=== PATIENT | female | born 1955 | race Caucasian/White ===

== ENCOUNTER 2019-01-01 09:32 | Outpatient (CLI) | payer OTHER ==
[2019-01-01 17:18] LABS: BASOPHILS % (AUTO) 0.2 %; EOSINOPHILS # (AUTO) 0.1 10^3/uL (0.0-0.7); EOSINOPHILS % (AUTO) 1.4 %; HGB - HEMOGLOBIN 14.2 g/dL (12.0-16.0); LYMPHOCYTES # (AUTO) 1.6 10^3/uL (1.5-3.5); LYMPHOCYTES % (AUTO) 35.8 %; MEAN CORPUSCULAR HEMOGLOBIN 32.7 pg (27.0-31.0); MEAN CORPUSCULAR HGB CONC 32.1 g/dL (32.0-36.0); MEAN CORPUSCULAR VOLUME 102.1 fL (81.0-99.0); MEAN PLATELET VOLUME 8.8 fL (7.9-10.8); MONOCYTES # (AUTO) 0.3 10^3/uL (0.0-1.0); MONOCYTES % (AUTO) 6.3 %; NEUTROPHILS # (AUTO) 2.5 10^3/uL (1.5-6.6); NEUTROPHILS % (AUTO) 55.8 %; PLT - PLATELET COUNT 139 10^3/uL (130-450); RED BLOOD COUNT 4.34 10^6/uL (4.20-5.40); RED CELL DISTRIBUTION WIDTH 14.5 % (12.0-15.0); WHITE BLOOD COUNT 4.4 x10^3/uL (4.8-10.8)
[2019-01-01 17:36] LABS: HB2 TOTAL 15.7 g/dL; HEMOGLOBIN A1C 0.53 g/dL; HEMOGLOBIN A1C % 5.2 % (4.6-6.2)
[2019-01-01 17:38] LABS: ALBUMIN 3.8 g/dL (3.2-5.5); ALBUMIN/GLOBULIN RATIO 1.2 (1.0-2.2); ALKALINE PHOSPHATASE 59 IU/L (42-121); ALT ALANINE AMINOTRANSFERASE 23 IU/L (10-60); AST ASPARTATE AMINOTRANSFERASE 24 IU/L (10-42); BILIRUBIN,TOTAL 0.9 mg/dL (0.2-1.0); BUN - BLOOD UREA NITROGEN 12 mg/dL (6-20); CALCIUM 8.7 mg/dL (8.5-10.3); CARBON DIOXIDE - CO2 25 mmol/L (21-32); CHLORIDE 107 mmol/L (101-111); CHOL/HDL RATIO 5.3 (<4.4); CHOLESTEROL 255 mg/dL; CREATININE 0.7 mg/dL (0.4-1.0); GFR - MDRD 84 (>89); GLUCOSE 99 mg/dL (70-100); HDL CHOLESTEROL 48 mg/dL; LDL CHOLESTEROL,CALCULATED 183 mg/dL; LDL/HDL RATIO 3.8 (<4.4); SODIUM 140 mmol/L (135-145); TOTAL PROTEIN 6.9 g/dL (6.7-8.2); VLDL CHOLESTEROL 24 mg/dL
== END 2019-01-01 09:33 | disposition home or self-care (01) ==
LOC: LAB.S 09:32
PROVIDERS: ATTEND Registered Nurse
DX: Z13.220 Encounter for screening for lipoid disorders (principal); Z13.29 Encounter for screening for other suspected endocrine disorder; I10 Essential (primary) hypertension
CPT/HCPCS: 36415; 80053; 80061; 83036; 83721; 84443; 85025

== ENCOUNTER 2019-03-22 17:06 | Outpatient (CLI) | payer OTHER ==
--- NOTE | 2019-03-22 21:59 | Ultrasound Report ---
Reason: POSTMENOPAUSAL BLEEDING Procedure Date: 03/22/2019 Accession Number: [id number] / [id number] Procedure: US - Pelvic w/Transvaginal CPT Code: FULL RESULT: EXAM: PELVIC ULTRASOUND EXAM DATE: 03/22/2019 06:10 PM. CLINICAL HISTORY: Postmenopausal bleeding. COMPARISON: None. TECHNIQUE: Realtime transabdominal pelvic scan performed to identify the uterus and adnexa and as an overview of other pelvic structures, followed by transvaginal scan to provide greater detail of the uterus and adnexa, with static image documentation. FINDINGS: Uterus: 11.4 x 4.7 x 5.4 cm, volume 149.8 cc. Anteverted position. Normal overall size and echotexture. Masses: Possible small intrarenal fibroid grossly measuring 12 x 12 x 10 mm at the right fundal region. Endometrium: 10 mm. Mildly thickened with ill-defined borders. No vascular mass seen. Cervix: Unremarkable. Right Ovary: 1.5 x 1.7 x 2.0 cm, volume 2.7 cc. Normal echotexture and blood flow. Left Ovary: 1.8 x 0.5 x 1.7 cm, volume 0.8 cc. Normal echotexture and blood flow. Free Fluid: None. Other: None. IMPRESSION: Mildly thickened and heterogeneous 10 mm endometrium for a postmenopausal patient. No discrete vascular masses seen. This may reflect hyperplasia but gynecologic follow-up suggested to entirely exclude early endometrial carcinoma. RADIA
== END 2019-03-22 17:07 | disposition home or self-care (01) ==
LOC: DI 17:06
PROVIDERS: ATTEND Obstetrics & Gynecology
DX: R93.89 Abnormal findings on diagnostic imaging of other specified body structures (principal); N95.0 Postmenopausal bleeding
CPT/HCPCS: 76830; 76856

== ENCOUNTER 2019-03-23 11:20 | Outpatient (CLI) | payer OTHER ==
[2019-03-23 12:06] LABS: BASOPHILS % (AUTO) 0.2 %; EOSINOPHILS # (AUTO) 0.1 10^3/uL (0.0-0.7); EOSINOPHILS % (AUTO) 1.1 %; HGB - HEMOGLOBIN 14.4 g/dL (12.0-16.0); LYMPHOCYTES # (AUTO) 1.8 10^3/uL (1.5-3.5); LYMPHOCYTES % (AUTO) 38.9 %; MEAN CORPUSCULAR HGB CONC 32.1 g/dL (32.0-36.0); MEAN CORPUSCULAR VOLUME 99.6 fL (81.0-99.0); MEAN PLATELET VOLUME 8.7 fL (7.9-10.8); MONOCYTES # (AUTO) 0.3 10^3/uL (0.0-1.0); MONOCYTES % (AUTO) 6.4 %; NEUTROPHILS # (AUTO) 2.4 10^3/uL (1.5-6.6); PLT - PLATELET COUNT 123 10^3/uL (130-450); RED CELL DISTRIBUTION WIDTH 13.8 % (12.0-15.0); WHITE BLOOD COUNT 4.5 x10^3/uL (4.8-10.8)
[2019-03-23 12:21] LABS: ALBUMIN/GLOBULIN RATIO 1.2 (1.0-2.2); BILIRUBIN,TOTAL 0.8 mg/dL (0.2-1.0); CALCIUM 9.5 mg/dL (8.5-10.3); CREATININE 0.7 mg/dL (0.4-1.0); TOTAL PROTEIN 7.4 g/dL (6.7-8.2)
== END 2019-03-23 11:21 | disposition home or self-care (01) ==
LOC: LAB 11:20
PROVIDERS: ATTEND Obstetrics & Gynecology
DX: Z01.818 Encounter for other preprocedural examination (principal); N95.0 Postmenopausal bleeding
CPT/HCPCS: 36415; 80053; 85025

== ENCOUNTER 2019-03-26 10:52 | Outpatient (CLI) | payer MEDICARE | END 2019-03-26 10:53 | disposition home or self-care (01) | LOC: RT 10:52 | PROVIDERS: ATTEND Obstetrics & Gynecology | DX: Z01.810 Encounter for preprocedural cardiovascular examination (principal); N95.0 Postmenopausal bleeding | CPT/HCPCS: 93005 ==

== ENCOUNTER 2019-03-31 05:56 | Day surgery (SDC) | payer MEDICARE, OTHER ==
--- NOTE | 2019-03-29 18:47 | HISTORY & PHYSICAL EXAMINATION ---
HPI - Admitted From Admitted from: Other - History of Present Illness HPI Comment/Other: Patient is a 64-year-old with 1-1/2 to 2-year history of postmenopausal bleeding. Patient reported that it started out as light bleeding, with "a slight bother on her panties". Volume has increased in time. Last week she felt a stabbing pain in her left side when she was rising from her couch. She then abruptly had a large quantity of breathe bleeding. She has heavier bleeding about every 3 months. The last episode she feels repeated pantiliner completely twice a day for 2 days. She is concerned about the pain. She had a pelvic ultrasound 10 years ago that was unremarkable. She has not had a recent pelvic imaging. She is not sexually active and has not been for 7 years. No history of abnormal Pap smears. Last Pap was in 2018. No history of sexually transmitted infections. G4, P3 with x3 and TAB x1. Has been in menopause for about 10 to 15 years. Started perimenopausal transition at 46 with completion at age 54. Allergies: No Known Allergies Medications: MISOPROSTOL 200 MCG ORAL TABLET (MISOPROSTOL) Place 2 tablets in the vagina the night prior to the procedure.; Route: VAGINAL Problems: Postmenopausal bleeding (ICD-627.1) (JLP23-T53.0) Obesity (ICD-278.00) (XVR68-V24.9) Hearing loss, right ear (ICD-389.9) (RJT27-O22.91) Postmenopausal (ICD-V49.81) (CRJ84-K34.0) Skin lesions, multiple (ICD-709.9) (IHE46-S08.8) Postmenopausal bleeding (ICD-627.1) (CAN95-X95.0) Screening for alcoholism (ICD-V79.1) (XJL46-J57.89) Screening for depression (ICD-V79.0) (DSA10-E77.89) Screening for hyperlipidemia (ICD-V77.91) (YNQ51-Z91.220) Screening for thyroid disorder (ICD-V77.0) (OFZ81-P35.29) Hypertension benign essential (ICD-401.1) (DQD20-H91) Family History Summary: Legacy Family History Notes: Grandfather with bone marrow cancer Family History Reviewed: 03/12/2019 Family History of Lung/Respiratory Disease for Mother - Entered On: 12/31/2018 Family History of Other Cancer for Mother - Entered On: 12/31/2018 Family History of Lung/Respiratory Disease for Father - Entered On: 12/31/2018 Family History of Other Cancer for Father - Entered On: 12/31/2018 Social History Summary: Patient has never smoked. Patient currently is smokeless tabacco user. Passive Smoke: Y Alcohol Use: Y Drug Use: N HIV/High Risk: N Regular Exercise: Y Lives in [place] with a roommate Retired; ports 1 once a week it would be [employer] T: None E: One glass of wine per week D: None Safe at home Social History Reviewed: 03/12/2019 Previous Social History: Patient has never smoked. Passive Smoke: N Alcohol Use: Y Drug Use: N Risk Factors: Smoked Tobacco Use: Never smoker Smokeless Tobacco Use: Current Passive Smoke Exposure: yes HIV High Risk Behavior: no Caffeine Use: 1 drinks per day Exercise: yes Times/wk: 7 Type of Exercise: Walk Seatbelt Use: 100 % Sun Exposure: frequently Vital Signs: Patient Profile: 64 Years Old Female LMP: 2007 Height: 61.5 inches Weight: 214 pounds BMI: 39.92 BP sittin / 90 Cuff size: large Vitals Entered By: Radha Wheeler MA (March 12, 2019 9:23 AM) Meds Reviewed: Done Allergies Reviewed: Done No known meds: F No known allergies: T Menstrual History: LMP (date): 2007 Past Medical History: Reviewed and updated today: Past Medical History was requested of patient but none was remarked. Fibroids Weight Disorder Past Surgical History: Reviewed and updated today: Tubal Ligation OB Initial Intake Information Race: White Marital status: Single Menstrual Hx/EDC LMP (date): 2007 Past History : 4 Term Births: 3 Elect. Ab: 1 # 1 Delivery date: 07/15/1975 Delivery type: # 2 Delivery date: 03/24/1977 Delivery type: # 3 Delivery date: 08/16/1986 Delivery type: ALUMINUM POLISHER Review of Systems ROS Comments: As per HPI otherwise remaining systems are negative. Flowsheet View for Follow-up Visit Weight: 214 Blood pressure: 144 / 90 Physical Constitutional: alert, no acute distress, well hydrated, well developed. obese appearing. Skin: normal turgor, normal color, no rashes. Head: atraumatic, normocephalic. Eyes: No conjunctival injection or scleral icterus Cardiovascular: RRR. Respiratory: no respiratory distress, clear to auscultation. Abdomen: nondistended, nontender, no guarding, normal BS. Spine: no deformities. Extremities: no deformities. Neurologic: normal. Psych: affect and mood appropriate, normal interaction, good eye contact. Vulva: normal appearance, no lesions or masses. Urethra: normal. Bladder: normal. Vagina: normal, rugated, physiologic discharge. Cervix: normal, no motion tenderness, no lesions. Unable to penetrate cervical os Impression & Recommendations: Problem # 1: Postmenopausal bleeding (ICD-627.1) (YYT34-S85.0) Orders: ENDOMETRIAL BIOPSY (CPT-48207) 56120 OV New Detailed (CPT-06045) US PELVIC/TRANSVAGINAL (CPT-85394, 15950) Unable to complete EMB due to cervical stenosis Will proceed to OR for hysteroscopy US prior to procedure Riskl/benefits/alternatives reviewed Written informed consent obtained Misoprostol 200 mcg x2 ordered for procedure treatment This visit lasted at least 30 minutes with greater than 50% of the time devoted to face to face case management discussion between the provider and the patient. PMH/PSH - Past Medical History Cardiovascular: positive: Hypertension Respiratory: positive: None Endocrine/Autoimmune: positive: None GI: positive: None : positive: None HEENT: positive: Chronic vision loss Psych: positive: None Musculoskeletal: positive: None Derm: positive: None MRSA Hx?: No - Past Surgical History General: /ALUMINUM POLISHER: positive: Tubal ligation Meds/Allgy - Home Medications Home Medications: Ambulatory Orders Medication Instructions Recorded Confirmed No Known Home Medications 03/22/19 03/22/19 - Allergies Allergies/Adverse Reactions: Allergies Allergy/AdvReac Type Severity Reaction Status Date / Time latex Allergy Rash Verified 03/22/19 13:28
[2019-03-31] MEDS ORDERED: LACTATED RINGERS 1,000 ML IV ONE (06:28)
[2019-03-31] MEDS ORDERED: ACETAMINOPHEN 1,000 MG/100 ML 100 ML IV ONE ×2 (06:34→07:00)
[2019-03-31] MEDS ORDERED: CELECOXIB 100 MG CAPSULE PO ONE ×2 (06:35→06:50)
[2019-03-31] MEDS ORDERED: GABAPENTIN 400 MG CAPSULE ONE (06:35)
[2019-03-31] MEDS ORDERED: PROPOFOL 200 MG/20 ML VIAL IVP ONE (07:00)
[2019-03-31] MEDS ORDERED: MIDAZOLAM 2 MG/2 ML VIAL IVP ONE (07:00)
[2019-03-31] MEDS ORDERED: fentaNYL 100 MCG/2 ML VIAL IVP ONE (07:00)
[2019-03-31] MEDS ORDERED: ePHEDrine 50 MG/ML VIAL IVP ONE (07:00)
[2019-03-31] MEDS ORDERED: DEXAMETHASONE 4 MG/ML VIAL IVP ONE (07:00)
[2019-03-31] MEDS ORDERED: ONDANSETRON 4 MG/2 ML VIAL IVP ONE (07:00)
--- NOTE | 2019-03-31 07:01 | ANESTHESIA ---
Pre-Anesthesia VS, & Labs - Diagnosis post menopausal bleeding - Procedure hysteroscopy, myosure, DnC Vital Signs: Temp Pulse Resp BP Pulse Ox 36.7 C 66 16 160/91 H 97 03/31/19 06:33 03/31/19 06:33 03/31/19 06:33 03/31/19 06:33 03/31/19 06:33 Height 5 ft 1 in Weight (kg) 97 kg - Is Patient ?: No Home Medications and Allergies Home Medications: Ambulatory Orders No Known Home Medications 03/22/19 No Known Home Medications 03/22/19 Allergies/Adverse Reactions: Allergies Allergy/AdvReac Type Severity Reaction Status Date / Time latex Allergy Rash Verified 03/22/19 13:28 Anes History & Medical History - Anesthetic History Anesthesia Complications: reports: No previous complications Family history of Anesthesia Complications: Denies Family history of Malignant Hyperthermia: Denies - Medical History Cardiovascular: reports: Hypertension Pulmonary: reports: None Gastrointestinal: reports: None Urinary: reports: None Neuro: reports: None Musculoskeletal: reports: None Endocrine/Autoimmune: reports: None Blood Disorders: reports: None Skin: reports: None Smoking Status: Never smoker Psychosocial: reports: No issues indicated - Surgical History General:  Eyes Ears Nose Throat (EENT): Cataracts (4 years ago.) Gynecologic: Tubal ligation (tubal ligation in 1995 with a SAB) Results - EKG Results EKG Comparison: Normal EKG Exam General: Alert, Oriented x3, Cooperative, No acute distress Mouth Openin Fingerbreadth Neck Mobility: Normal Mallampati classification: II Thyromental Distance: 4-6 cm Respiratory: Lungs clear, Normal breath sounds, No respiratory distress, No accessory muscle use Cardiovascular: Regular rate, Normal S1, Normal S2, No murmurs Abdomen: Normal bowel sounds, Soft, No tenderness, No hepatospenomegaly, No masses Extremities: No clubbing, No cyanosis, No edema, Normal pulses, No tenderness/swelling Neurological: Normal gait, Normal speech, Strength at 5/5 X4 ext, Normal tone, Sensation intact, Cranial nerves 3-12 NL, Reflexes 2+ Mental/Cognitive Status: Alert/Oriented X3, Normal for patient Cognitive Status: Within normal limits Plan Anesthesia Type: General Consent for Procedure(s) Verified and Reviewed: Yes Code Status: Attempt Resuscitation ASA classification: 2-Mild systemic disease Is this case an emergency?: No
[2019-03-31] MEDS ORDERED: LIDOCAINE 1%-EPI 1:100000 20 ML MDV ONE (07:19)
[2019-03-31] MEDS ORDERED: LIDOCAINE 1%-EPI 1:100000 30 ML MDV SUBQ ONE (08:08)
[2019-03-31] MEDS ORDERED: VASOPRESSIN 20 UNIT/ML VIAL ONE (08:32)
[2019-03-31 09:50] VITALS: BP 152/78
--- NOTE | 2019-03-31 10:16 | OPERATIVE REPORT ---
Operative Report - General Planned Procedure: Hysteroscopy D&C, possible polypectomy/myomectomy Pre-Op Diagnosis: Postmenopausal bleeding, cervical stenosis Procedure Performed: Hysteroscopy D&C and polypectomy Post Op Diagnosis: Same and intrauterine polyp - Procedure Note Primary Surgeon: Urszula Walker MD Anesthesia Provider: Nayana Colvin CRNA Anesthesia Technique: General ET tube Pathology: Uterine contents IV Fluids (mL): 1,400 (Fluid deficit 450) Estimated Blood Loss (mL): 5 (in and out catheterization) Urine Output (mL): 90 Indications: Postmenopausal bleeding with cervical stenosis. Unable to perform biopsy in clinic. Findings: Stenotic cervix requiring vasopressin to dilate. Pale intrauterine polyp in cavity with fibrotic changes, no thickening of endometium Complications: None - Other Other Information/Narrative: Risks benefits and alternatives to the procedure were reviewed. Consent was again confirmed. Patient was taken to the operating room where she underwent general anesthesia. She was positioned in dorsolithotomy position with legs resting in yellowfin stirrups. She was prepped and draped in the usual sterile fashion. Preoperative antibiotics were not indicated. Preoperative checklist was performed. Exam under anesthesia was performed. Speculum was placed in the vagina and the cervix was visualized. Single-tooth tenaculum was placed at the anterior cervical lip. Paracervical block was administered using a total of 20 cc of 1% lidocaine with epinephrine was injected at the 4:00 and 8:00 positions lateral to the portio of the cervix. The cervical os was stenotic and would not accept dilation. A total of 10 cc of vasdopressin in NS (20:100) was injected arount he cervical os. It was then serially dilated with Hegar dilators to accommodate the caliber of the diagnostic hysteroscope. The hysteroscope was inserted and findings were noted as above. The hysteroscopic morcellator was inserted through the operative port. The intrauterine polyp was morcellated under direct visualization. Uterine cavity was smooth at close of the procedure. Hysteroscope was removed. All instruments were removed from the uterus. Tenaculum was removed. Tenaculum sites were noted to be hemostatic. All instruments were removed from the vagina. Procedure was well-tolerated without complication. Fluid deficit: 450
== END 2019-03-31 05:57 | disposition home or self-care (01) ==
LOC: SDS 05:56
PROVIDERS: ATTEND Obstetrics & Gynecology
PROC: 0UDB8ZZ Extraction of Endometrium, Via Natural or Artificial Opening Endoscopic (ICD-10-PCS; 2019-03-31)
PROC: 0UB98ZZ Excision of Uterus, Via Natural or Artificial Opening Endoscopic (ICD-10-PCS; principal; 2019-03-31 07:30)
DX: N84.0 Polyp of corpus uteri (principal); N95.0 Postmenopausal bleeding; N88.2 Stricture and stenosis of cervix uteri; E66.9 Obesity, unspecified; I10 Essential (primary) hypertension; Z72.0 Tobacco use; Z68.39 Body mass index [BMI] 39.0-39.9, adult
CPT/HCPCS: 58558; A9270; J0131; J7120

== ENCOUNTER 2020-04-28 11:30 | Outpatient (CLI) | payer MEDICARE ==
[2020-04-28 15:40] LABS: BASOPHILS % (AUTO) 0.3 %; EOSINOPHILS % (AUTO) 0.7 %; LYMPHOCYTES # (AUTO) 2.1 10^3/uL (1.5-3.5); LYMPHOCYTES % (AUTO) 34.6 %; MEAN CORPUSCULAR HEMOGLOBIN 32.8 pg (27.0-31.0); MEAN CORPUSCULAR HGB CONC 32.2 g/dL (32.0-36.0); MEAN CORPUSCULAR VOLUME 101.9 fL (81.0-99.0); MONOCYTES # (AUTO) 0.4 10^3/uL (0.0-1.0); MONOCYTES % (AUTO) 6.7 %; NEUTROPHILS # (AUTO) 3.4 10^3/uL (1.5-6.6); NEUTROPHILS % (AUTO) 57.5 %; PLT - PLATELET COUNT 132 10^3/uL (130-450); RED BLOOD COUNT 4.27 10^6/uL (4.20-5.40); RED CELL DISTRIBUTION WIDTH 13.8 % (12.0-15.0)
[2020-04-28 16:00] LABS: BUN - BLOOD UREA NITROGEN 16 mg/dL (6-20); CALCIUM 9.3 mg/dL (8.5-10.3); CARBON DIOXIDE - CO2 25 mmol/L (21-32); CHLORIDE 102 mmol/L (101-111); CHOL/HDL RATIO 3.5 (<4.4); CHOLESTEROL 181 mg/dL; CREATININE 0.8 mg/dL (0.4-1.0); GLUCOSE 98 mg/dL (70-100); HDL CHOLESTEROL 51 mg/dL; LDL CHOLESTEROL,CALCULATED 104 mg/dL; SODIUM 137 mmol/L (135-145); VLDL CHOLESTEROL 26 mg/dL
== END 2020-04-28 11:31 | disposition home or self-care (01) ==
LOC: LAB.S 11:30
PROVIDERS: ATTEND Internal Medicine Cardiovascular Disease
DX: I10 Essential (primary) hypertension (principal); E78.5 Hyperlipidemia, unspecified
CPT/HCPCS: 36415; 80048; 80061; 83721; 85025

== ENCOUNTER 2021-03-15 08:56 | Outpatient (CLI) | payer MEDICARE ==
[2021-03-15 15:25] LABS: BASOPHILS % (AUTO) 0.2 %; EOSINOPHILS # (AUTO) 0.1 10^3/uL (0.0-0.7); EOSINOPHILS % (AUTO) 1.2 %; HCT - HEMATOCRIT 44.2 % (37.0-47.0); HGB - HEMOGLOBIN 14.2 g/dL (12.0-16.0); LYMPHOCYTES # (AUTO) 1.7 10^3/uL (1.5-3.5); MEAN CORPUSCULAR HEMOGLOBIN 32.8 pg (27.0-31.0); MEAN CORPUSCULAR HGB CONC 32.1 g/dL (32.0-36.0); MEAN CORPUSCULAR VOLUME 102.1 fL (81.0-99.0); MONOCYTES # (AUTO) 0.3 10^3/uL (0.0-1.0); MONOCYTES % (AUTO) 6.5 %; NEUTROPHILS # (AUTO) 2.1 10^3/uL (1.5-6.6); NEUTROPHILS % (AUTO) 51.1 %; PLT - PLATELET COUNT 124 10^3/uL (130-450); RED BLOOD COUNT 4.33 10^6/uL (4.20-5.40); RED CELL DISTRIBUTION WIDTH 14.1 % (12.0-15.0); WHITE BLOOD COUNT 4.2 x10^3/uL (4.8-10.8)
[2021-03-15 15:58] LABS: THYROID STIMULATING HORMONE 3.32 uIU/mL (0.34-5.60)
[2021-03-15 16:01] LABS: ALBUMIN 3.9 g/dL (3.2-5.5); ALBUMIN/GLOBULIN RATIO 1.3 (1.0-2.2); ALKALINE PHOSPHATASE 60 IU/L (42-121); ALT ALANINE AMINOTRANSFERASE 22 IU/L (10-60); AST ASPARTATE AMINOTRANSFERASE 22 IU/L (10-42); BILIRUBIN,TOTAL 1.1 mg/dL (0.2-1.0); BUN - BLOOD UREA NITROGEN 17 mg/dL (6-20); CALCIUM 8.7 mg/dL (8.5-10.3); CARBON DIOXIDE - CO2 28 mmol/L (21-32); CHLORIDE 102 mmol/L (101-111); CHOL/HDL RATIO 3.7 (<4.4); CHOLESTEROL 194 mg/dL; CREATININE 0.7 mg/dL (0.4-1.0); GFR - MDRD 83 (>89); GLUCOSE 102 mg/dL (70-100); HDL CHOLESTEROL 53 mg/dL; LDL CHOLESTEROL,CALCULATED 125 mg/dL; LDL/HDL RATIO 2.4 (<4.4); POTASSIUM 3.9 mmol/L (3.5-5.0); SODIUM 138 mmol/L (135-145); TRIGLYCERIDES 82 mg/dL; VLDL CHOLESTEROL 16 mg/dL
== END 2021-03-15 08:57 | disposition home or self-care (01) ==
LOC: LAB.S 08:56
PROVIDERS: ATTEND Registered Nurse
DX: I11.9 Hypertensive heart disease without heart failure (principal); N95.0 Postmenopausal bleeding; E66.9 Obesity, unspecified
CPT/HCPCS: 36415; 80053; 80061; 83721; 84443; 85025

== ENCOUNTER 2021-04-09 10:41 | Outpatient (CLI) | payer MEDICARE ==
--- NOTE | 2021-04-10 08:19 | Mammography Report ---
BILATERAL DIGITAL SCREENING MAMMOGRAM 3D/2D: 04/09/2021 CLINICAL: Routine screening. Comparison is made to exam dated: 09/29/2017 mammogram - [facility]. The tissue of both breasts is predominantly fatty. No significant masses, calcifications, or other findings are seen in either breast. There has been no significant interval change. IMPRESSION: NEGATIVE There is no mammographic evidence of malignancy. A 1 year screening mammogram is recommended. This exam was interpreted at Station ID: [id number]. NOTE: For mammograms, a report in lay terms will be sent to the patient. Approximately 15% of breast malignancies will not be visualized mammographically. In the management of a palpable breast mass, a negative mammogram must not discourage biopsy of a clinically suspicious lesion. Electronically Signed By: Georgi Simms acr/penrad:04/09/2021 15:50:35 ACR BI-RADS Category 1: Negative 3341F PARENCHYMAL PATTERN: (F) - The breast(s) demonstrate(s) diffuse fatty replacement. BI-RADS CATEGORY: (1) - 1 RECOMMENDATION: (ANNUAL) - Recommend routine annual screening mammography. [id number] 1 year screening LATERALITY: (B)
== END 2021-04-09 10:42 | disposition home or self-care (01) ==
LOC: DI.S 10:41
DX: Z12.31 Encounter for screening mammogram for malignant neoplasm of breast (principal)

== ENCOUNTER 2021-06-07 15:24 | Outpatient (CLI) | payer MEDICARE ==
--- NOTE | 2021-06-07 16:21 | DEXA Report ---
PROCEDURE: Dexa Spine and/or Hip INDICATIONS: POST MENOPAUSAL TECHNIQUE: Dual energy x-ray absorptiometry (DXA) was performed on a Nubity System. Regions measur ed are the AP Spine, femoral neck, and if needed forearm. COMPARISON: None. FINDINGS: Lumbar Spine: Bone Mineral Density 1.376 g/cm/cm,T score 1.6, normal. Left Hip: Bone Mineral Density 1.165 g/cm/cm,T score 1.2, normal. Left Femoral Neck: Bone Mineral Density 1.000 g/cm/cm, T score -0.3, normal. (T score greater or equal to -1.0: NORMAL) (T score from -1.1 to -2.4: OSTEOPENIA) (T score less than or equal to -2.5 to: OSTEOPOROSIS) Impression: Based on WHO criteria, the patient's bone mineral density is normal. Patients with diagnosis of osteoporosis or osteopenia should have regular bone mineral density assess ment. For those eligible for Medicare, routine testing is allowed once every 2 years. Testing frequ ency can be increased for patients who have rapidly progressing disease or for those who are receivin g medical therapy to restore bone mass. Reviewed by: Alexandre Judd MD on 06/07/2021 4:20 PM PST Approved by: Alexandre Judd MD on 06/07/2021 4:20 PM PST Station ID: [id number]
== END 2021-06-07 15:25 | disposition home or self-care (01) ==
LOC: DI 15:24
PROVIDERS: ATTEND Registered Nurse
DX: Z78.0 Asymptomatic menopausal state (principal)

== ENCOUNTER 2022-08-05 09:00 | Outpatient (CLI) | payer MEDICARE ==
[2022-08-05 14:39] LABS: BASOPHILS % (AUTO) 0.2 %; EOSINOPHILS # (AUTO) 0.1 10^3/uL (0.0-0.7); EOSINOPHILS % (AUTO) 1.5 %; HCT - HEMATOCRIT 45.3 % (37.0-47.0); HGB - HEMOGLOBIN 14.4 g/dL (12.0-16.0); LYMPHOCYTES # (AUTO) 2.1 10^3/uL (1.5-3.5); LYMPHOCYTES % (AUTO) 44.5 %; MEAN CORPUSCULAR HEMOGLOBIN 32.4 pg (27.0-31.0); MEAN CORPUSCULAR HGB CONC 31.8 g/dL (32.0-36.0); MEAN PLATELET VOLUME 8.8 fL (7.9-10.8); MONOCYTES # (AUTO) 0.4 10^3/uL (0.0-1.0); MONOCYTES % (AUTO) 7.5 %; NEUTROPHILS # (AUTO) 2.2 10^3/uL (1.5-6.6); NEUTROPHILS % (AUTO) 46.1 %; PLT - PLATELET COUNT 130 10^3/uL (130-450); RED BLOOD COUNT 4.44 10^6/uL (4.20-5.40); RED CELL DISTRIBUTION WIDTH 14.1 % (12.0-15.0); WHITE BLOOD COUNT 4.7 x10^3/uL (4.8-10.8)
[2022-08-05 15:02] LABS: ALBUMIN 3.5 g/dL (3.2-5.5); ALBUMIN/GLOBULIN RATIO 1.1 (1.0-2.2); ALKALINE PHOSPHATASE 54 IU/L (42-121); ALT ALANINE AMINOTRANSFERASE 19 IU/L (10-60); AST ASPARTATE AMINOTRANSFERASE 21 IU/L (10-42); BILIRUBIN,TOTAL 0.8 mg/dL (0.2-1.0); BUN - BLOOD UREA NITROGEN 15 mg/dL (6-20); CALCIUM 8.9 mg/dL (8.5-10.3); CARBON DIOXIDE - CO2 28 mmol/L (21-32); CHLORIDE 106 mmol/L (101-111); CHOL/HDL RATIO 5.1 (<4.4); CHOLESTEROL 277 mg/dL; CREATININE 0.7 mg/dL (0.4-1.0); GFR - MDRD 83 (>89); GLUCOSE 99 mg/dL (70-100); HDL CHOLESTEROL 54 mg/dL; LDL CHOLESTEROL,CALCULATED 201 mg/dL; LDL/HDL RATIO 3.7 (<4.4); POTASSIUM 4.6 mmol/L (3.5-5.0); SODIUM 139 mmol/L (135-145); TOTAL PROTEIN 6.7 g/dL (6.7-8.2); TRIGLYCERIDES 111 mg/dL; VLDL CHOLESTEROL 22 mg/dL
[2022-08-05 16:23] LABS: THYROID STIMULATING HORMONE 4.49 uIU/mL (0.34-5.60)
== END 2022-08-05 09:01 | disposition home or self-care (01) ==
LOC: LAB.S 09:00
PROVIDERS: ATTEND Registered Nurse
DX: I10 Essential (primary) hypertension (principal); E78.5 Hyperlipidemia, unspecified; Z79.899 Other long term (current) drug therapy
CPT/HCPCS: 36415; 80053; 80061; 83721; 84443; 85025

== ENCOUNTER 2023-05-02 20:58 | Outpatient (CLI) | payer MEDICARE ==
--- NOTE | 2023-05-04 14:20 | Ultrasound Report ---
PROCEDURE: Pelvic w/Transvaginal INDICATIONS: ABN VAGINAL BLEEDING TECHNIQUE: Real-time scanning was performed of the pelvic organs, with image documentation. Additional endovagi nal scanning was necessary due to incomplete visualization of the adnexal and endometrial structures by transabdominal scanning. COMPARISON: None. FINDINGS: Uterus: Uterus is anteverted and normal in size at 9.0 x 5.3 x 6.0 cm. The myometrium is homogeneou s. The endometrium measures 16 mm in combined thickness. Ovaries: Ovaries are not visualized Other: No pathologic free abdominal or pelvic fluid. IMPRESSION: 1. Markedly thickened endometrium measuring 16 mm. In the patient was postmenopausal bleeding, endome trial carcinoma needs be excluded. Recommend D&C. 2. Ovaries are not visualized. Reviewed by: Alexandre Judd MD on 05/04/2023 2:19 PM PST Approved by: Alexandre Judd MD on 05/04/2023 2:19 PM PST Station ID: [id number]
== END 2023-05-02 20:59 | disposition home or self-care (01) ==
LOC: DI 20:58
PROVIDERS: ATTEND Physician Assistant Medical
DX: N93.9 Abnormal uterine and vaginal bleeding, unspecified (principal); R93.89 Abnormal findings on diagnostic imaging of other specified body structures

== ENCOUNTER 2023-05-30 11:02 | Outpatient (CLI) | payer MEDICARE ==
[2023-05-30 14:25] LABS: BASOPHILS % (AUTO) 0.4 %; EOSINOPHILS # (AUTO) 0.1 10^3/uL (0.0-0.7); HCT - HEMATOCRIT 43.4 % (37.0-47.0); HGB - HEMOGLOBIN 14.2 g/dL (12.0-16.0); LYMPHOCYTES # (AUTO) 2.3 10^3/uL (1.5-3.5); LYMPHOCYTES % (AUTO) 45.1 %; MEAN CORPUSCULAR HEMOGLOBIN 33.3 pg (27.0-31.0); MEAN CORPUSCULAR HGB CONC 32.7 g/dL (32.0-36.0); MEAN CORPUSCULAR VOLUME 101.6 fL (81.0-99.0); MONOCYTES # (AUTO) 0.4 10^3/uL (0.0-1.0); MONOCYTES % (AUTO) 8.2 %; NEUTROPHILS # (AUTO) 2.3 10^3/uL (1.5-6.6); NEUTROPHILS % (AUTO) 45.3 %; PLT - PLATELET COUNT 128 10^3/uL (130-450); RED BLOOD COUNT 4.27 10^6/uL (4.20-5.40); RED CELL DISTRIBUTION WIDTH 14.5 % (12.0-15.0)
[2023-05-30 15:26] LABS: ALBUMIN 3.9 g/dL (3.2-5.5); ALBUMIN/GLOBULIN RATIO 1.3 (1.0-2.2); BILIRUBIN,TOTAL 0.6 mg/dL (0.2-1.0); CALCIUM 9.2 mg/dL (8.5-10.3); CREATININE 0.8 mg/dL (0.6-1.3); POTASSIUM 4.3 mmol/L (3.5-4.5); TOTAL PROTEIN 6.8 g/dL (6.4-8.9)
== END 2023-05-30 11:03 | disposition home or self-care (01) ==
LOC: LAB.S 11:02
PROVIDERS: ATTEND Obstetrics & Gynecology
DX: Z01.812 Encounter for preprocedural laboratory examination (principal); N95.0 Postmenopausal bleeding; R93.89 Abnormal findings on diagnostic imaging of other specified body structures
CPT/HCPCS: 36415; 80053; 85025

== ENCOUNTER 2023-06-03 12:26 | Day surgery (SDC) | payer MEDICARE ==
[2023-06-03] MEDS ORDERED: LACTATED RINGERS 1,000 ML IV ONE ×2 (12:55→15:24)
[2023-06-03] MEDS ORDERED: PROPOFOL 200 MG/20 ML VIAL IVP ONE (13:30)
[2023-06-03] MEDS ORDERED: fentaNYL 100 MCG/2 ML VIAL ONE (13:31)
[2023-06-03] MEDS ORDERED: ALBUTEROL 8 GM INHALER INH ONE (13:35)
--- NOTE | 2023-06-03 14:23 | ANESTHESIA ---
Pre-Anesthesia VS, & Labs - Diagnosis menopausal bleeding - Procedure hysteroscopy, possible polypectomy Vital Signs: Temp Pulse Resp BP Pulse Ox O2 Flow Rate 36.5 C 72 16 141/76 H 99 06/03/23 12:56 06/03/23 12:56 06/03/23 12:56 06/03/23 12:56 06/03/23 12:56 Height: 5 ft 2 in Weight (kg): 98 kg Body Mass Index: 39.5 BMI Classification: Obese - NPO >8 hours - Is Patient ?: No - Lab Results Lab results reviewed: Yes Home Medications and Allergies Home Medications: Ambulatory Orders Calcium Carb/Mag Ox/Zinc Sulf [Kgk-Fiy-Ondu 334-134-5 mg Tab] 1 each PO DAILY 05/27/23 Cholecalciferol [Vitamin D3] 50 mcg PO DAILY 05/27/23 Losartan [Cozaar] 50 mg PO DAILY 05/27/23 Vitamin B Complex 1 each PO DAILY 05/27/23 Calcium Carb/Mag Ox/Zinc Sulf [Wxb-Ktb-Przx 334-134-5 mg Tab] 1 each PO DAILY 05/27/23 Cholecalciferol [Vitamin D3] 50 mcg PO DAILY 05/27/23 Losartan [Cozaar] 50 mg PO DAILY 05/27/23 Vitamin B Complex 1 each PO DAILY 05/27/23 Allergies/Adverse Reactions: Allergies Allergy/AdvReac Type Severity Reaction Status Date / Time latex Allergy Rash Verified 06/03/23 13:29 Anes History & Medical History - Anesthetic History Anesthesia Complications: reports: No previous complications Family history of Anesthesia Complications: Denies Family history of Malignant Hyperthermia: Denies (took losartan last night) - Medical History Cardiovascular: reports: Hypertension Pulmonary: reports: None Gastrointestinal: reports: None Urinary: reports: None Neuro: reports: None Musculoskeletal: reports: Other Endocrine/Autoimmune: reports: None Blood Disorders: reports: None Skin: reports: None Smoking Status: Never smoker - Surgical History General: reports: Colonoscopy Eyes Ears Nose Throat (EENT): reports: Cataracts Gynecologic: reports: Dilation and currettage, Tubal ligation Exam General: Alert Dental: WNL Mouth Openin Fingerbreadth Neck Mobility: Normal Mallampati classification: II Thyromental Distance: 4-6 cm Cardiovascular: Regular rate Plan Anesthesia Type: General Consent for Procedure(s) Verified and Reviewed: Yes Code Status: Attempt Resuscitation ASA classification: 2-Mild systemic disease Is this case an emergency?: No
[2023-06-03] MEDS ORDERED: ePHEDrine 50 MG/ML VIAL IVP PRN (14:24)
[2023-06-03] MEDS ORDERED: ATROPINE ABBOJECT 1 MG/10 ML SYRINGE IVP PRN (14:24)
[2023-06-03] MEDS ORDERED: HYDROmorphone 0.5 MG/0.5 ML SYRINGE IVP PRN (14:24)
[2023-06-03] MEDS ORDERED: ONDANSETRON 4 MG/2 ML VIAL IVP PRN (14:24)
[2023-06-03] MEDS ORDERED: MORPHINE 2 MG/ML CARPUJECT IVP PRN (14:24)
[2023-06-03] MEDS ORDERED: fentaNYL 100 MCG/2 ML VIAL IVP PRN (14:24)
[2023-06-03] MEDS ORDERED: METOCLOPRAMIDE 10 MG/2 ML VIAL IVP PRN (14:24)
[2023-06-03] MEDS ORDERED: NALOXONE 0.4 MG/ML VIAL IVP PRN (14:24)
[2023-06-03] MEDS ORDERED: LACTATED RINGERS 1,000 ML IV SCH (15:00)
[2023-06-03] MEDS ORDERED: ROCURONIUM 50 MG/5 ML VIAL ONE (15:08)
[2023-06-03] MEDS ORDERED: ONDANSETRON 4 MG/2 ML VIAL ONE (15:09)
[2023-06-03] MEDS ORDERED: SUGAMMADEX 200 MG/2 ML VIAL IVP ONE (15:09)
[2023-06-03] MEDS ORDERED: DEXAMETHASONE 4 MG/ML VIAL ONE (15:09)
[2023-06-03] MEDS ORDERED: KETOROLAC 30 MG/ML VIAL ONE (15:11)
--- NOTE | 2023-06-03 15:26 | OPERATIVE REPORT ---
Operative Report - General Procedure Date: 06/03/23 - Other Other Information/Narrative: OPERATIVE NOTE Pre-operative diagnosis: 1. post menopausal bleeding 2. thickened endometrium Procedure: Diagnostic hysteroscopy, dilation and curettage, polypectomy Post-operative diagnosis: FREDI Surgeon: Louise Church Business Administrator: None Anesthesia: LMA Findings: EUA: small uterus, no adnexal masses, normal cervix Speculum: normal vagina, normal cervix Hysteroscope: normal ostea on L, normal fundus polyp on fundal uterine wall - obscuring R ostea removed and confirmed removal with visualization normal endocervical canal Specimen: endometrial curettage & polyp Complications: None apparent EBL: minimal Hysteroscopic fluid in: 1L Hysteroscopic fluid out: 800cc UOP: none, pt voided prior to case Dispo: Pt to PACU in stable condition Procedure in detail: After risks benefits and alternatives, as well as indication for procedure and anticipated post-operative recovery course, were discussed with the patient informed consent was obtained and patient was taken to the operating theater where general anesthesia with LMA was administered without complication, this was then witched to ET tube. Pt placed in dorsal lithotomy position, SCDs in place and running, and bimanual exam revealed the aforementioned findings. Rodriguez speculum placed in posterior vagina, and anterior lip of cervix grasped with tenaculum. Cervix dilated to accomodate 5.5mm hysteroscope. hysteroscope then entered without difficulty. aforementioned findings noted. hysteroscope removed. polyp forceps used to attempt to remove polyp, successful. Curettage done 360' uterine cry. All instruments removed, specimen sent to pathology. All counts correct. Pt awaked from anesthesia. Pt to PACU in stable condition. Events of procedure discussed with patient's son per permission from patient. A ll questions answered.
[2023-06-03] MEDS ORDERED: HYDROmorphone 0.5 MG/0.5 ML SYRINGE ONE ×2 (15:31→15:46)
[2023-06-03] MEDS ORDERED: GLYCOPYRROLATE 1 MG/5 ML VIAL ONE (15:33)
--- NOTE | 2023-06-03 16:18 | ANESTHESIA POST OP EVALUATION ---
Anesthesia Post Eval - Post Anesthesia Eval Vitals: Last Vital Signs Temp 36.1 C L 06/03/23 16:08 Pulse 67 06/03/23 16:08 Resp 13 06/03/23 16:08 BP 130/72 06/03/23 16:08 Pulse Ox 95 06/03/23 16:08 O2 Flow Rate CV Function Including HR & BP: Stable Pain Control: Satisfactory Nausea & Vomiting: Negative Mental Status: Baseline Respiratory Status: Airway Patent Hydration Status: Satisfactory Anesthesia Complications: None
[2023-06-03 16:47] VITALS: BP 126/56; O2SAT 98
== END 2023-06-03 12:27 | disposition home or self-care (01) ==
LOC: SDS 12:26
PROVIDERS: ATTEND Obstetrics & Gynecology
PROC: 0UB98ZZ Excision of Uterus, Via Natural or Artificial Opening Endoscopic (ICD-10-PCS; principal; 2023-06-03 13:45)
DX: C54.1 Malignant neoplasm of endometrium (principal); E66.9 Obesity, unspecified; Z68.39 Body mass index [BMI] 39.0-39.9, adult; I10 Essential (primary) hypertension
CPT/HCPCS: 58558; J1170; J7120

== ENCOUNTER 2023-09-03 08:00 | Outpatient (CLI) | payer MEDICARE ==
[2023-09-03 19:59] LABS: BILIRUBIN,URINE NEGATIVE (NEGATIVE); GLUCOSE, URINE (UA) NEGATIVE (NEGATIVE); KETONES,URINE (UA) NEGATIVE (NEGATIVE); LEUKOCYTE ESTERASE, URINE MODERATE (NEGATIVE); NITRITE,URINE NEGATIVE (NEGATIVE); OCCULT BLOOD,URINE LARGE (NEGATIVE); PH,URINE 6.5 PH (5.0-7.5); PROTEIN,URINE NEGATIVE (NEGATIVE); UROBILINOGEN,URINE 0.2 (NORMAL) E.U./dL (NORMAL)
[2023-09-03 20:02] LABS: CLARITY,URINE HAZY (CLEAR)
[2023-09-03 20:18] LABS: BACTERIA,URINE Moderate /HPF (None Seen); RBC,URINE 0-5 /HPF (0-5); SQUAMOUS EPITHELIAL CELL,UR RARE Squamous (<= Few); WBC,URINE >25 /HPF (0-5)
== END 2023-09-03 23:59 | disposition home or self-care (01) ==
LOC: LAB.F 08:00
PROVIDERS: ATTEND Physician Assistant Medical
DX: R30.0 Dysuria (principal)
CPT/HCPCS: 81001; 87077; 87086; 87181

== ENCOUNTER 2023-09-05 13:04 | Outpatient (CLI) | payer MEDICARE ==
--- NOTE | 2023-09-08 09:54 | Mammography Report ---
BILATERAL DIGITAL SCREENING MAMMOGRAM 3D/2D: 09/05/2023 CLINICAL: Routine screening. Comparison is made to exams dated: 04/09/2021 mammogram - [facility] and 09/29/2017 mammogram - [facility]. Both breasts are almost entirely fatty (category a/<25% glandular tissue). No significant masses, calcifications, or other findings are seen in either breast. There has been no significant interval change. IMPRESSION: NEGATIVE There is no mammographic evidence of malignancy. A 1 year screening mammogram is recommended. Based on the Tyrer Cuzick model (a risk assessment model) the patient's lifetime risk is 3.0% and her 10 year risk is 1.9%. According to the ACR, ACS, and NCCN guidelines, an annual breast MRI exam kacie g with mammogram is recommended if the patient's lifetime risk is 20% or greater. This exam was interpreted at Station ID: [id number]. NOTE: For mammograms, a report in lay terms will be sent to the patient. Approximately 15% of breast malignancies will not be visualized mammographically. In the management of a palpable breast mass, a negative mammogram must not discourage biopsy of a clinically suspicious lesion. Electronically Signed By: Noé van/katty:09/05/2023 16:52:51 letter sent: No_Letter ACR BI-RADS Category 1: Negative 3341F PARENCHYMAL PATTERN: (F) - The breast(s) demonstrate(s) diffuse fatty replacement. BI-RADS CATEGORY: (1) - 1 RECOMMENDATION: (ANNUAL) - Recommend routine annual screening mammography. [id number] 1 year screening LATERALITY: (B)
== END 2023-09-05 13:05 | disposition home or self-care (01) ==
LOC: DI 13:04
DX: Z12.31 Encounter for screening mammogram for malignant neoplasm of breast (principal)

== ENCOUNTER 2023-09-10 09:45 | Outpatient (CLI) | payer MEDICARE ==
[2023-09-10 14:26] LABS: BASOPHILS % (AUTO) 0.4 %; EOSINOPHILS # (AUTO) 0.1 10^3/uL (0.0-0.7); EOSINOPHILS % (AUTO) 1.2 %; HCT - HEMATOCRIT 43.5 % (37.0-47.0); HGB - HEMOGLOBIN 13.8 g/dL (12.0-16.0); LYMPHOCYTES % (AUTO) 40.5 %; MEAN CORPUSCULAR HEMOGLOBIN 32.4 pg (27.0-31.0); MEAN CORPUSCULAR HGB CONC 31.7 g/dL (32.0-36.0); MEAN CORPUSCULAR VOLUME 102.1 fL (81.0-99.0); MEAN PLATELET VOLUME 9.1 fL (7.9-10.8); MONOCYTES # (AUTO) 0.3 10^3/uL (0.0-1.0); MONOCYTES % (AUTO) 6.5 %; NEUTROPHILS # (AUTO) 2.5 10^3/uL (1.5-6.6); NEUTROPHILS % (AUTO) 51.4 %; PLT - PLATELET COUNT 140 10^3/uL (130-450); RED BLOOD COUNT 4.26 10^6/uL (4.20-5.40); RED CELL DISTRIBUTION WIDTH 13.9 % (12.0-15.0); WHITE BLOOD COUNT 4.9 x10^3/uL (4.8-10.8)
[2023-09-10 14:59] LABS: ALBUMIN 3.6 g/dL (3.2-5.5); ALBUMIN/GLOBULIN RATIO 1.2 (1.0-2.2); ALKALINE PHOSPHATASE 68 IU/L (42-121); ALT ALANINE AMINOTRANSFERASE 17 IU/L (10-60); AST ASPARTATE AMINOTRANSFERASE 18 IU/L (10-42); BILIRUBIN,TOTAL 0.6 mg/dL (0.2-1.0); BUN - BLOOD UREA NITROGEN 15 mg/dL (6-20); CALCIUM 9.3 mg/dL (8.5-10.3); CARBON DIOXIDE - CO2 29 mmol/L (21-32); CHLORIDE 105 mmol/L (101-111); CHOL/HDL RATIO 5.2 (<4.4); CHOLESTEROL 260 mg/dL; CREATININE 0.6 mg/dL (0.6-1.3); GFR - MDRD 99 (>89); GLUCOSE 96 mg/dL (74-104); HDL CHOLESTEROL 50 mg/dL; LDL CHOLESTEROL,CALCULATED 182 mg/dL; LDL/HDL RATIO 3.6 (<4.4); POTASSIUM 4.2 mmol/L (3.5-4.5); SODIUM 137 mmol/L (135-145); TOTAL PROTEIN 6.7 g/dL (6.4-8.9); TRIGLYCERIDES 139 mg/dL (48-352); VLDL CHOLESTEROL 28 mg/dL
== END 2023-09-10 09:46 | disposition home or self-care (01) ==
LOC: LAB.S 09:45
PROVIDERS: ATTEND Registered Nurse
DX: I10 Essential (primary) hypertension (principal); Z79.899 Other long term (current) drug therapy; Z13.29 Encounter for screening for other suspected endocrine disorder
CPT/HCPCS: 36415; 80053; 80061; 83721; 84443; 85025